=== PATIENT | male | born 1990 ===

== ENCOUNTER 2019-01-11 15:46 | Emergency (ER) | payer OTHER ==
[~2019-01-11] VITALS: Ht 172.7 cm; Wt 72.7 kg
[2019-01-11 15:50] VITALS: BP 133/84
[2019-01-11] MEDS ORDERED: epiNEPHrine inj 0.3 MG in BUPIVAcaine 0.5% inj/PF 29.7 ML SQ ONE (16:30)
[2019-01-11] MEDS ORDERED: CLIN-96 PO (16:35)
[2019-01-11] MEDS ORDERED: BUPIVAcaine 0.5% W/EPI /PF 30ml vial IJ ONE (16:40)
[2019-01-11] MEDS ORDERED: HYDR-3965 PO (18:16)
--- NOTE | 2019-01-11 18:29 | NUR ---
Per previous triage nurse, pt has never left the [facility] and has been in frequent communication with PA and triage nurse since computer d/c re. RX, emergency [facility], and obtaining [facility] for rx. After getting off the phone with the pharmacy in [facility] he states he can't afford any medication because he has no villavicencio. a one time dose of the pain med he was prescribed, Hazard, was given to him. per PA, do not re register him at this time to give the 1 time med
[2019-01-11] MEDS ORDERED: HYDROcodone/acetaminophen 10/325mg tab PO ONE (18:30)
== END 2019-01-11 17:09 | disposition home or self-care (01) ==
LOC: ER 15:47
DX: K02.9 Dental caries, unspecified (principal); M54.2 Cervicalgia; H92.01 Otalgia, right ear; Z88.0 Allergy status to penicillin; Z79.2 Long term (current) use of antibiotics; Z79.899 Other long term (current) drug therapy
CPT/HCPCS: 64400; 99284